=== PATIENT | female | born 1990 | race Caucasian/White ===

== ENCOUNTER 2019-01-17 05:53 | Inpatient (IN) ==
[2019-01-17] MEDS: LACTATED RINGERS 1,000 ML IV SCH ×4 (07:37→21:13)
[2019-01-17] MEDS ORDERED: BUTORPHANOL 2 MG/ML VIAL IV PRN (08:27)
[2019-01-17] MEDS ORDERED: MEPERIDINE 50 MG/1 ML VIAL IV PRN (08:27)
[2019-01-17 08:44] LABS: Basophils % 0.5 % (0.0-0.8); Eosinophils % 0.5 % (0.00-10.9); Hematocrit 34.2 VOL% (35.7-47.0); Hemoglobin 11.3 GM/DL (12.0-16.0); Immature Granulocytes % 0.7 %; Immature Granulocytes Absolute 0.06 #; Lymphocytes # 2.3 10*3/uL (1.4-4.0); Mean Corpuscular Volume 98.3 FL (87-102); Mean Platelet Volume 9.6 FL (9.6-12.0); Monocytes % 8.7 % (1.7-12.7); Neutrophils % 61.6 % (38.7-73.9); Platelet Count 232 T/CUMM (130-400); Red Blood Count 3.48 MC/CUMM (3.8-5.5); Red Cell Distribution Width 13.7 % (9.3-17.3); White Blood Count 8.4 T/CUMM (4-12)
[2019-01-17] MEDS ORDERED: OXYTOCIN/LR 20 UNIT/1,000 ML BAG IV SCH (09:00)
[2019-01-17] MEDS ORDERED: ePHEDrine 50 MG/ML AMP IV PRN (10:35)
[2019-01-17] MEDS ORDERED: CITRIC ACID/SODIUM CITRATE 30 ML UDCUP PO ONE (10:35)
[2019-01-17] MEDS ORDERED: PROMETHAZINE 25 MG/1 ML VIAL IM PRN (10:35)
[2019-01-17] MEDS ORDERED: NALOXONE 0.4 MG/ML VIAL IV PRN (10:35)
[2019-01-17] MEDS ORDERED: FAMOTIDINE 20 MG/2 ML VIAL IV ONE (10:35)
[2019-01-17] MEDS ORDERED: LACTATED RINGERS 250 ML IV PRN (10:35)
[2019-01-17] MEDS ORDERED: hydrOXYzine HCL 25 MG/1 ML VIAL IM PRN (10:35)
[2019-01-17] MEDS ORDERED: diphenhydrAMINE 50 MG/1 ML VIAL IV PRN (10:35)
[2019-01-17] MEDS: fentaNYL 2 MCG/ROPIV 0.2% EPID 100 ML EPIDURAL SCH (12:20)
[2019-01-17] MEDS ORDERED: ePHEDrine 50 MG/ML AMP IV ONE ×3 (12:24→13:52)
[2019-01-17 15:49] LABS: Apearance,Urine CLEAR (Clear); Bilirubin,Urine Negative (Negative); Blood, Urine Negative (Negative); Glucose,Urine (UA) Negative (Negative); Ketones,Urine 20 mg/dL (Negative); Mucus,Urine Occasional /LPF (Occasional); Nitrite,Urine Negative (Negative); Protein,Urine Negative; RBC,Urine <1 /HPF (0-4); Squamous Epithelial Cell,Urine Occasional /HPF (0-10); Urine Color Yellow (Yellow); Urine Urobilinogen < 2.0 EU/DL (<2.0); WBC,Urine 1 /HPF (0-6)
[2019-01-17] MEDS: ONDANSETRON 4 MG/2 ML VIAL IV PRN (17:35)
[2019-01-18] MEDS ORDERED: TERBUTALINE 1 MG/1 ML VIAL SUBCUT ONE (02:23)
[2019-01-18] MEDS ORDERED: MAGNESIUM HYDROXIDE SUSP 30 ML UDCUP PO ONE (02:32)
[2019-01-18] MEDS ORDERED: fentaNYL 100 MCG/2 ML VIAL ONE ×2 (06:59→17:17)
[2019-01-18] MEDS: ONDANSETRON 4 MG/2 ML VIAL IV PRN ×2 (07:14→11:34)
[2019-01-18] MEDS: LACTATED RINGERS 1,000 ML IV SCH (07:47)
[2019-01-18] MEDS: fentaNYL 2 MCG/ROPIV 0.2% EPID 100 ML EPIDURAL SCH ×2 (08:44→14:50)
[2019-01-18] MEDS ORDERED: ROPIVACAINE 0.5% 30 ML VIAL ONE (17:11)
[2019-01-18] MEDS ORDERED: MORPHINE 10 MG/10 ML VIAL ONE (17:17)
[2019-01-18] MEDS ORDERED: LIDOCAINE MPF 2% /EPI 20 ML VIAL ONE (17:17)
[2019-01-18] MEDS ORDERED: KETOROLAC 60 MG/2 ML VIAL IM ONE (17:18)
[2019-01-18] MEDS ORDERED: ceFAZolin 3,000 MG in SYRINGE 1 EACH IV ONE (18:00)
[2019-01-18] MEDS ORDERED: MAGNESIUM HYDROXIDE SUSP 30 ML UDCUP PO PRN (19:29)
[2019-01-18] MEDS ORDERED: ONDANSETRON 4 MG/2 ML VIAL IV PRN (19:29)
[2019-01-18] MEDS ORDERED: RHO(D) IMMUNE GLOBULIN 300 MCG SYRINGE IM ONE (19:29)
[2019-01-18] MEDS ORDERED: SIMETHICONE CHEW 80 MG TABLET PO PRN (19:29)
[2019-01-18] MEDS ORDERED: OXYTOCIN/LR 20 UNIT/1,000 ML BAG IV ONE (19:29)
[2019-01-18] MEDS ORDERED: ACETAMINOPHEN 325 MG TABLET PO PRN (19:29)
[2019-01-18] MEDS ORDERED: LACTATED RINGERS 1,000 ML IV SCH (19:30)
[2019-01-18] MEDS ORDERED: HYDROmorphone 2 MG/1 ML VIAL IV PRN (19:35)
[2019-01-18] MEDS ORDERED: PHENYLEPHRINE 1 MG/10 ML SYRINGE IV ONE (19:38)
[2019-01-18] MEDS: IBUPROFEN 800 MG TABLET PO PRN (22:47)
[2019-01-19] MEDS: ALUMINUM/MAGNES/SIMETH MAX STR 30 ML UDCUP PO PRN (01:59)
[2019-01-19] MEDS: KETOROLAC 30 MG/1 ML VIAL IV SCH ×3 (02:01→13:30)
[2019-01-19] MEDS: ceFAZolin 1,000 MG in SYRINGE 1 EACH IV SCH ×2 (02:05→10:21)
[2019-01-19 05:49] LABS: Basophils % 0.2 % (0.0-0.8); Eosinophils % 0.3 % (0.00-10.9); Hematocrit 29.1 VOL% (35.7-47.0); Hemoglobin 9.6 GM/DL (12.0-16.0); Immature Granulocytes % 0.7 %; Immature Granulocytes Absolute 0.08 #; Lymphocytes # 1.8 10*3/uL (1.4-4.0); Mean Corpuscular Volume 99.3 FL (87-102); Mean Platelet Volume 9.5 FL (9.6-12.0); Neutrophils % 74.8 % (38.7-73.9); Platelet Count 179 T/CUMM (130-400); Red Blood Count 2.93 MC/CUMM (3.8-5.5); White Blood Count 11.8 T/CUMM (4-12)
[2019-01-19] MEDS: ONDANSETRON 4 MG/2 ML VIAL IV PRN (06:54)
[2019-01-19] MEDS: MULTIVITAMIN (PRENATAL) TABLET PO SCH (08:42)
[2019-01-19] MEDS: DOCUSATE SODIUM 100 MG CAPSULE PO SCH ×2 (08:44→20:11)
[2019-01-19] MEDS: IBUPROFEN 800 MG TABLET PO PRN (15:29)
[2019-01-20] MEDS: IBUPROFEN 800 MG TABLET PO PRN ×4 (01:20→23:58)
[2019-01-20] MEDS: MULTIVITAMIN (PRENATAL) TABLET PO SCH (08:00)
[2019-01-20] MEDS: DOCUSATE SODIUM 100 MG CAPSULE PO SCH ×2 (08:00→20:08)
[2019-01-20] MEDS ORDERED: oxyCODONE/ACETAMINOPHEN 5-325 MG TABLET PO PRN (19:52)
[2019-01-20] MEDS: oxyCODONE/ACETAMINOPHEN 5-325 MG TABLET PO PRN ×2 (20:09→23:59)
[2019-01-21] MEDS: ALUMINUM/MAGNES/SIMETH MAX STR 30 ML UDCUP PO PRN (05:53)
[2019-01-21 06:57] VITALS: BP 115/64
[2019-01-21] MEDS: IBUPROFEN 800 MG TABLET PO PRN (07:36)
[2019-01-21] MEDS: oxyCODONE/ACETAMINOPHEN 5-325 MG TABLET PO PRN (07:37)
[2019-01-21] MEDS: MULTIVITAMIN (PRENATAL) TABLET PO SCH (08:34)
[2019-01-21] MEDS: DOCUSATE SODIUM 100 MG CAPSULE PO SCH (08:35)
== END 2019-01-21 09:45 | disposition home or self-care (01) | DRG 788 ==
LOC: N.LDOUT 05:53 → N.LD 06:10 → N.OB 01-18 22:40
PROVIDERS: ADMIT Obstetrics & Gynecology; ATTEND Obstetrics & Gynecology
PROC: LDCSECT (ICD-10-PCS; 2019-01-18 18:00)